=== PATIENT | female | born 1955 | race Caucasian/White ===

== ENCOUNTER → 2024-04-03 | Outpatient (CLI) | payer MEDICARE ==
--- NOTE | 2024-04-03 12:47 | MR ---
EXAMINATION TYPE: MR brain wo/w con DATE OF EXAM: 04/03/2024 11:49 AM COMPARISON: None. CLINICAL INDICATION: Female, 69 years old with history of I69.811 MEMORY DEFICIT; PHH, Memory loss TECHNIQUE: Multi planar, multi sequence imaging was performed through the brain including: T1, T2, In version recovery, susceptibility weighted imaging and gradient echo imaging and Diffusion weighted im aging. The patient was then given intravenous contrast and multi planar, T1 fat-saturation images wer e obtained. IV Contrast: 6 mL Gadobutrol FINDINGS: Mild cerebral atrophy with proportional dilation of ventricular system. Diffusion-weighted imaging s hows no evidence of restricted diffusion to suggest acute/subacute infarct. Intracranial arterial ubaldo w voids are maintained. Midline structures show no abnormality. Scattered foci of high T2 signal inte nsity are seen within the periventricular white matter. The susceptibility weighted images do not rev eal any evidence for micro-hemorrhage. After administration of gadolinium, no abnormal enhancement is seen. The bone marrow signal is within normal limits. Paranasal sinuses and mastoid air cells: No significant paranasal sinus disease. Visualized orbits: Orbital contents are intact. IMPRESSION: 1. No evidence of intracranial mass, acute/subacute infarct, or abnormal enhancement. 2. Nonspecific white matter changes, likely related to small vessel ischemic disease. [facility], , 04/03/2024 12:45 PM
== END | disposition home or self-care (01) ==
LOC: RADMRIMAIN 10:03
PROVIDERS: ATTEND Family Medicine
DX: I69.811 Memory deficit following other cerebrovascular disease (principal); R90.82 White matter disease, unspecified
CPT/HCPCS: 70553; A9585

== ENCOUNTER → 2024-09-11 | Outpatient (CLI) | payer MEDICARE ==
--- NOTE | 2024-09-11 10:01 | CT ---
EXAMINATION TYPE: CT abdomen pelvis wo con DATE OF EXAM: 09/11/2024 9:06 AM COMPARISON: None. CLINICAL INDICATION: Female, 69 years old with history of R10.31, M54.50; Rt flank pain TECHNIQUE: CT of the abdomen and pelvis without IV contrast. Coronal and sagittal reconstructions pe rformed. CT DLP: 252.9 mGycm, Automated exposure control for dose reduction was used. FINDINGS: LOWER CHEST: Heart upper limits of normal in size. No pericardial effusion. ABDOMEN LIVER: Unremarkable GALLBLADDER AND BILE DUCTS: Unremarkable. PANCREAS: Unremarkable. SPLEEN: Unremarkable. ADRENAL GLANDS: Mild thickening of the left adrenal gland without discrete nodularity. KIDNEYS AND URETERS: 1.8 cm cortical cyst anterior mid right kidney. No nephrolithiasis or hydronephr osis is seen. PELVIS BLADDER: No evidence for wall thickening or mass given limitations of exam. REPRODUCTIVE: Uterus surgically absent. Suspect visualization of both ovaries though detailed assessm ent is limited due to clustered bowel loops. No abnormal fluid collection in the pelvis or pelvic lym phadenopathy. ABDOMEN & PELVIS STOMACH AND BOWEL: No evidence of bowel obstruction. Some prominent fluid filled small bowel loops se en low in the pelvis. There is liquid stool noted within the right side of the colon. While the appendix is not discretely visualized, no secondary findings of acute appendicitis right lo wer quadrant. Mild overall stool burden. Redundant distal sigmoid colon. Extensive mid to distal sigm oid diverticulosis. No pericolonic inflammatory changes seen. There is eccentric mural thickening along the left posterior rectal wall are likely due to adherent s tool material and fold redundancy due to the presence of a prominent pelvic laxity. PERITONEUM/RETROPERITONEUM: No evidence of pneumoperitoneum or free fluid. VASCULATURE: Ectatic lower descending thoracic aorta 2.6 cm. MUSCULOSKELETAL: Moderate degenerative change of the hips. Hypertrophic facet arthropathy mid to lowe r lumbar spine. LYMPH NODES: No gross evidence for lymphadenopathy. SOFT TISSUE/ABDOMINAL WALL: Prominent pelvic floor laxity. IMPRESSION: 1. Prominent fluid-filled small bowel loops low in the pelvis and liquid stool in the right side of the colon. Consider enteritis. No nephrolithiasis or hydronephrosis is seen. 2. Redundant distal sigmoid colon with extensive diverticulosis. No findings of acute diverticulitis. 3. There is eccentric mural-based thickening along the rectal wall. This may relate to adherent stool or fold redundancy in the setting of prominent pelvic floor relaxation. Correlate with findings on d irect visualization if routine screening colonoscopy is not not being performed. [facility], , 09/11/2024 9:59 AM
== END | disposition home or self-care (01) ==
LOC: RADCTMAIN 08:41
PROVIDERS: ATTEND Family Medicine
DX: M54.50 Low back pain, unspecified (principal); K57.30 Diverticulosis of large intestine without perforation or abscess without bleeding; K62.89 Other specified diseases of anus and rectum
CPT/HCPCS: 74176